=== PATIENT | female | born 1945 | race Two or more races ===

== ENCOUNTER 2018-03-06 09:14 | Day surgery (SDC) | payer MEDICARE, MEDICAID ==
[2018-03-04 16:24] LABS: INTERNATIONAL NORMALIZED RATIO 0.99 (0.93-1.1); PROTHROMBIN TIME 10.2 Seconds (9.6-11.5)
[2018-03-04 16:27] LABS: ANION GAP 13 mmol/L (5-15); CALCIUM 9.1 mg/dL (8.5-10.1); CHLORIDE 109 mmol/L (98-107)
[2018-03-04 16:34] LABS: ALANINE AMINOTRANSFERASE 17 U/L (12-78); ALKALINE PHOSPHATASE 77 U/L (45-117); BILIRUBIN,TOTAL 0.3 mg/dL (0.2-1.0); TOTAL PROTEIN 8.1 g/dL (6.4-8.2)
[2018-03-04 16:37] LABS: BASOPHILS # (AUTO) 0.14 x10^3/uL (0-0.1); BASOPHILS % (AUTO) 2 % (0-1); EOSINOPHILS % (AUTO) 3 % (1-7); LYMPHOCYTES # (AUTO) 3.42 x10^3/uL (1-3.4); LYMPHOCYTES % (AUTO) 37 % (22-44); MD NO; MEAN CORPUSCULAR HEMOGLOBIN 31.3 pg (27.0-34.8); MEAN CORPUSCULAR HGB CONC 33.6 g/dL (32.4-35.8); MEAN CORPUSCULAR VOLUME 93.1 fL (80-100); MEAN PLATELET VOLUME 8.1 fL (7.4-10.4); MONOCYTES # (AUTO) 0.65 x10^3/uL (0.2-0.8); MONOCYTES % (AUTO) 7 % (2-9); NEUTROPHILS # (AUTO) 4.84 x10^3/uL (1.8-6.8); NEUTROPHILS % (AUTO) 52 % (42-75); PLATELET COUNT 290 x10^3/uL (130-400)
[~2018-03-06] VITALS: Ht 142.2 cm; Wt 49.4 kg
[~2018-03-06 09:14] MED LIST: AMLO5TAB7 PO; CALC0.25 PO; SODI650T PO
[2018-03-06 09:41] VITALS: BP 169/101
[2018-03-06] MEDS ORDERED: SODIUM CHLORIDE 0.9% 1,000 ML IV SCH (09:44)
[2018-03-06] MEDS ORDERED: HEPARIN 1,000 UNITS/ML, 10ML ONE (11:37)
[2018-03-06] MEDS ORDERED: FENTANYL PF 100 MCG/2ML ONE (11:37)
[2018-03-06] MEDS ORDERED: MIDAZOLAM 1 MG/ML, 2ML ONE (11:37)
[2018-03-06] MEDS ORDERED: BUPIVACAINE/PF-EPI 0.5% 1:200K ONE (11:37)
[2018-03-06] MEDS ORDERED: PROTAMINE SULFATE 10 MG/ML, 5ML ONE (11:37)
[2018-03-06] MEDS ORDERED: HEPARIN 5,000 UNITS/ML, 1ML ONE (11:37)
[2018-03-06] MEDS ORDERED: THROMBIN 20,000 UNIT VIAL TP ONE (11:54)
[2018-03-06] MEDS ORDERED: PAPAVERINE 30 MG/ML, 2ML ONE ×2 (11:54→12:30)
[2018-03-06] MEDS ORDERED: CEFAZOLIN 1,000 MG ONE (11:57)
[2018-03-06] MEDS ORDERED: ACETAMINOPHEN 325 MG TABLET PO PRN (12:00)
[2018-03-06] MEDS ORDERED: MEPERIDINE/PF 25MG/0.5ML IVPush PRN (12:00)
[2018-03-06] MEDS ORDERED: HYDROmorphone 1 MG/ML, 1ML IV PRN (12:00)
[2018-03-06] MEDS ORDERED: hydrALAzine 20 MG/ML, 1ML IV PRN (12:00)
[2018-03-06] MEDS ORDERED: FENTANYL PF 100 MCG/2ML IV PRN (12:00)
[2018-03-06] MEDS ORDERED: OXYcodone 5 MG/5 ML ORAL.SOL UDC PO PRN (12:00)
[2018-03-06] MEDS ORDERED: PROMETHAZINE 25 MG/ML, 1ML IV PRN (12:00)
[2018-03-06] MEDS ORDERED: LABETALOL 5MG/ML, 20ML IV PRN (12:00)
[2018-03-06] MEDS ORDERED: HALOPERIDOL 5 MG/ML IV PRN (12:00)
[2018-03-06] MEDS ORDERED: ONDANSETRON 2MG/ML, 2ML ONE ×2 (12:43→13:33)
[2018-03-06] MEDS ORDERED: BUPIVACAINE/PF 0.5% ONE (12:58)
[2018-03-06] MEDS ORDERED: LIDOCAINE/PF 0.5% ,50ML ONE (12:58)
[2018-03-06] MEDS ORDERED: PROPOFOL 50 ML ONE (13:29)
[2018-03-06] MEDS ORDERED: DEXAMETHASONE 4 MG/ML, 1ML ONE ×2 (13:33)
[2018-03-06] MEDS ORDERED: KETOROLAC 30 MG/1 ML ONE (13:33)
== END 2018-03-06 15:40 | disposition home or self-care (01) ==
LOC: OUT 09:14 → MERGE 11:30 → OUT 15:40
PROVIDERS: ATTEND Surgery
DX: I12.0 Hypertensive chronic kidney disease with stage 5 chronic kidney disease or end stage renal disease (principal); N18.6 End stage renal disease; Z98.49 Cataract extraction status, unspecified eye; Z98.890 Other specified postprocedural states
CPT/HCPCS: 36415; 36821; 80053; 85025; 85610; 85730; 93005; J0690; J1100; J1644; J1885; J2001; J2250; J2405; J2440; J2704; J2720; J3010; J3490; J7030

== ENCOUNTER → 2018-03-27 | Outpatient (CLI) | payer MEDICARE, MEDICAID | END | disposition home or self-care (01) | LOC: MERGE 01-20 14:43 → CVU 08:44 | PROVIDERS: ATTEND Surgery | DX: T82.590A Other mechanical complication of surgically created arteriovenous fistula, initial encounter (principal); I12.0 Hypertensive chronic kidney disease with stage 5 chronic kidney disease or end stage renal disease | CPT/HCPCS: 93990 ==

== ENCOUNTER 2018-08-11 07:12 | Day surgery (SDC) | payer MEDICARE, MEDICAID ==
[~2018-08-11] VITALS: Ht 144.8 cm; Wt 47.5 kg
[~2018-08-11 07:12] MED LIST changes: +AMLO-150 PO; -AMLO5TAB7 PO
[2018-08-11] MEDS ORDERED: SODIUM CHLORIDE 0.9% 1,000 ML IV SCH (08:24)
[2018-08-11 08:27] VITALS: BP 166/96
[2018-08-11] MEDS ORDERED: PROPOFOL 10 MG/ML, 20ML ONE (10:34)
[2018-08-11] MEDS ORDERED: SUCCINYLCHOLINE 20 MG/ML, 10ML ONE (10:34)
[2018-08-11] MEDS ORDERED: CEFAZOLIN 1,000 MG ONE (10:34)
[2018-08-11] MEDS ORDERED: ROCURONIUM 10MG/ML,5ML ONE (10:34)
[2018-08-11] MEDS ORDERED: FENTANYL PF 100 MCG/2ML ONE (11:05)
[2018-08-11] MEDS ORDERED: MIDAZOLAM 1 MG/ML, 2ML ONE (11:06)
[2018-08-11] MEDS ORDERED: BUPIVACAINE/PF-EPI 0.5% 1:200K ONE (11:37)
[2018-08-11] MEDS ORDERED: HEPARIN 1,000 UNITS/ML, 10ML ONE (11:37)
[2018-08-11] MEDS ORDERED: ONDANSETRON 2MG/ML, 2ML ONE (12:25)
[2018-08-11] MEDS ORDERED: OXYcodone 5 MG/5 ML ORAL.SOL UDC ONE (12:25)
[2018-08-11] MEDS ORDERED: hydrALAzine 20 MG/ML, 1ML IV PRN (12:30)
[2018-08-11] MEDS ORDERED: HYDROmorphone 2 MG/ML, 1ML IVPush PRN (12:30)
[2018-08-11] MEDS ORDERED: FENTANYL PF 100 MCG/2ML IV PRN (12:30)
[2018-08-11] MEDS ORDERED: OXYcodone 5 MG/5 ML ORAL.SOL UDC PO PRN (12:30)
[2018-08-11] MEDS ORDERED: PROMETHAZINE 25 MG/ML, 1ML IV PRN (12:30)
[2018-08-11] MEDS ORDERED: LABETALOL 5MG/ML, 20ML IV PRN (12:30)
[2018-08-11] MEDS ORDERED: ONDANSETRON 2MG/ML, 2ML IV PRN (12:30)
== END 2018-08-11 14:05 | disposition home or self-care (01) ==
LOC: OUT 07:12
PROVIDERS: ATTEND Surgery Vascular Surgery
DX: I12.0 Hypertensive chronic kidney disease with stage 5 chronic kidney disease or end stage renal disease (principal); E11.22 Type 2 diabetes mellitus with diabetic chronic kidney disease; N18.6 End stage renal disease
CPT/HCPCS: 36415; 49324; 80047; 93005; C1750; J0330; J0690; J1644; J2250; J2405; J2704; J3010